=== PATIENT | female | born 2000 | race Caucasian/White ===

== ENCOUNTER → 2023-02-23 10:44 | Outpatient (CLI) | payer OTHER, SELFPAY ==
--- NOTE | 2023-02-23 | DI.US.S_ITS ---
ULTRASOUND OF LEFT BREAST: 02/23/2023 CLINICAL: Palpable left breast lump. No prior exams were available for comparison. Real-time ultrasound of the left breast was performed. [place] scale images of the real-time examination were reviewed. No significant abnormalities were seen sonographically in the left breast. IMPRESSION: NEGATIVE There is no sonographic evidence of malignancy or fluid collection. There is no abnormality seen in the left breast to correspond with the area of clinical concern at 3 o'clock, however, clinical correlation and clinical followup are recommended. A negative ultrasound does not preclude further evaluation if there is a clinically suspicious or concerning finding. This exam was interpreted at Station ID: [id number]. Electronically Signed By: Romaine Mayer M.D. lc/:02/23/2023 11:06:29 letter sent: Clinical Evaluation Ultrasound BI-RADS: 1 Negative
== END ==
PROVIDERS: PCP Internal Medicine; Referring Provider Internal Medicine; Visit Provider Internal Medicine
DX: N63.21 Unspecified lump in the left breast, upper outer quadrant (principal); N64.4 Mastodynia
CPT/HCPCS: 76642